=== PATIENT | male | born 1950 | race Caucasian/White ===

== ENCOUNTER → 2020-04-17 10:03 | Outpatient (CLI) | payer MEDICARE, OTHER, SELFPAY ==
[2020-04-19 08:49] LABS: COVID19 Sendout Not Detected (Not Detect)
== END ==
PROVIDERS: Visit Provider Nurse Practitioner
DX: Z01.812 Encounter for preprocedural laboratory examination (principal)
CPT/HCPCS: 87635

== ENCOUNTER 2020-04-20 06:59 | Day surgery (SDC) | payer MEDICARE, OTHER, SELFPAY ==
[2020-04-18 07:24] VITALS: BMI 31.4
[2020-04-20] VITALS (14 sets, daily range): BP systolic 95–145; BP diastolic 58–97; PULSE 42–64; RESP 11–16; TEMP 35.6–36.6; O2SAT 93–98; BMI 31.4
--- NOTE | 2020-04-20 06:00 | DI.RAD.S_ITS ---
PROCEDURE: XR HIP W PEL IF DONE LT 2V INDICATIONS: post operative left hip TECHNIQUE: Single frontal view of the left hip acquired. COMPARISON: [facility], CR, XR PELVIS WITH LATERAL HIP LEFT, 03/30/2020, 9:53. FINDINGS: Bones: Patient is status post left hip arthroplasty, with hardware components in expected positions. The hip joint appears congruent. The visualized bony structures appear intact. Soft tissues: Overlying postoperative changes are noted. No suspicious soft tissue densities. IMPRESSION: Normal alignment after left total hip arthroplasty. Moderate osteoarthritis again noted at the right hip. Dictated by: Maicol Wharton M.D. on 04/20/2020 at 11:30 Approved by: Maicol Wharton M.D. on 04/20/2020 at 11:30
[2020-04-20] MEDS: ACETAMINOPHEN 325 MG TABLET 975 MG PO (08:00)
[2020-04-20] MEDS: PREGABALIN 75 MG CAPSULE PO (08:00)
[2020-04-20] MEDS: CELECOXIB 200 MG CAPSULE PO (08:00)
[2020-04-20] MEDS: LACTATED RINGERS 1,000 ML 42 ML IV (08:05)
[2020-04-20] MEDS: CLINDAMYCIN 600 MG/50 ML PIGGYBACK 50 MG IV (08:50)
--- NOTE | 2020-04-20 08:56 | PM.PREOP ---
Pre-operative Note COVID-19 COVID-19 status: Negative Result date/Date tested (Pos, Neg/Pending): 04/18/20 Interval Note History & Physical reviewed/Exam performed by Physician: Yes Changes to H&P: No
[2020-04-20] MEDS: CLINDAMYCIN 300 MG in DEXTROSE 5 % IN WATER 50 ML 104 ML IV (09:05)
--- NOTE | 2020-04-20 09:26 | SUR.OPER ---
Lateral on padded OR bed. Gel axillary roll. Arms secured on padded armboard with pillow supporting top arm. Padded hip positioner braces x4 - anterior and posterior chest and pelvis. Additional gel pad used anterior pelvis. Gel pad under bottom leg from knee to foot and secured with tape over sheet.
[2020-04-20] MEDS: KETOROLAC 30 MG/ML VIAL IV (09:31)
[2020-04-20] MEDS: ROPIVACAINE 0.5% PF 5 MG/ML 20ML VIAL 60 ML INJ (09:31)
[2020-04-20] MEDS: MORPHINE 4 MG/ML INJ INJ (09:31)
[2020-04-20] MEDS: TRANEXAMIC ACID 1,000 MG VIAL 2000 MG INJ ×2 (09:33→09:57)
--- NOTE | 2020-04-20 09:49 | SUR.OPER ---
Humidity in OR was 69%; normal range 20-60%; surgery was delayed.
--- NOTE | 2020-04-20 10:37 | PM.OP.1 ---
Operative Date/Time/Diagnoses Date of procedure: 04/20/20 Time of procedure: 10:37 Pre-op diagnosis: Left hip degenerative joint disease Post-op diagnosis: same Procedure & Clinicians Procedure: Left total hip arthroplasty (CPT code 88399 with child welfare assistant) Same procedure as scheduled: Yes Indications: Patient is an 69-year-old male with severe left hip DJD. The patient has pain with activities and at rest, limited ambulation and activity tolerance, difficulties with ADLs, and failure of conservative treatment. We have discussed the nature of condition, treatment options, risks and benefits, and patient elects to proceed with total hip arthroplasty and gives informed consent. Surgeon: Vargas Barron Design And Sales Consultant: Devan Varghese Anesthesia Type: General and Spinal Operative Notes Closure Type: primary Specimen(s): none sent Prosthetic devices, grafts, tissues, transplants, or devices: Acetabulum: Lal and Nephew R3 acetabular component size 54 mm Femoral component: Lal [employer] Nephew Anthology stem size 6 with standard offset Femoral head: 36 mm + 4 cobalt chrome Estimated Blood Loss (mL): 100 Blood products transfused: none Procedure in detail: After satisfaction induction of anesthetic, and administration of IV antibiotics, the patient was positioned in the lateral decubitus position with all bony prominences well padded and pelvic position secured using a hip older worker specialist positioning device. Left hip and lower extremity prepped and draped in the usual sterile fashion, 1st dose of intravenous tranexamic acid was administered, then a longitudinal incision was created centered over the greater trochanter and carried sharply through the skin and subcutaneous tissues down to the fascia lakisha which was divided longitudinally and retracted with a Charnley retractor. External rotators visualize, cut, tagged, and retracted posteriorly, then the capsule was cut in a T-type fashion with the corners tagged and retracted. Hip was dislocated and femoral neck cut made according to preoperative templating. Acetabular retractors then placed, and the acetabular labrum and osteophytes were excised. The acetabulum was then sequentially reamed to 53 mm with an excellent circumferential ream and fit with the trial. The trial component was removed and a permanent size 54 mm Lal and Nephew R3 acetabular component was selected, positioned, and impacted with satisfactory position and fixation achieved. Permanent liner was then inserted with the elevated lip directed posteriorly. Soft tissue then removed off the lateral femoral neck in the lateral neck was entered using a box osteotome. T-handled reamers placed down the canal followed by sequential broaching to 6 with the final broach left in place for trial reduction which demonstrated good leg length, range of motion, and stability characteristics with a 36 mm +0 trial ball. Another trial reduction was performed with a +4 ball which yielded excellent leg length range of motion and stability characteristics. The trial and broach were removed, and a permanent size 6 Lal and Nephew Anthology stem was selected and inserted with excellent position and fixation achieved. Another trial reduction yielded the above characteristics so the trial ball was exchanged for a permanent 36 mm + 4 cobalt chrome ball. The hip was irrigated and reduced and excellent leg length range of motion and stability characteristics were achieved and maintained. Periarticular tissues were infiltrated with ropivacaine, morphine, and Toradol. The hip was copiously irrigated, and the capsule repaired with #2 Ethibond, and the piriformis was repaired back to the greater trochanter with the same. Fascia lakisha closed with interrupted #1 Ethibond sutures, and the subcutaneous tissues were closed in 2 layers of 0 Vicryl and 2 0 Vicryl. Skin was closed with zip line closure and sterile dressings applied. Second dose of tranexamic acid was administered intravenously, and the anesthetic was terminated. Complications: none Post-operative Condition: stable Disposition: PACU Plan for aftercare: Patient will be admitted to the acute care [facility], and anticipate discharge on postop day 1 with follow-up in office in 10-14 days. Outpatient physical therapy will be arranged and patient will continue to observe posterior hip precautions. Patient will continue use of postoperative aspirin for DVT prophylaxis postop.
[2020-04-20] MEDS: LACTATED RINGERS 1,000 ML 125 ML IV ×2 (12:48→20:24)
--- NOTE | 2020-04-20 14:25 | PT.IIE ---
Current Diagnoses Unilateral primary osteoarthritis, left hip (04/20/20) Surgery Performed Operation Date: 04/20/20 08:45 Actual Procedures p Total Hip Arthroplasty(Left) - Vargas Barron MD Surgical History (Last Updated 04/18/20 @ 08:13 by Linda Wade RN) History of colonoscopy (Acute) History of phacoemulsification of cataract of left eye with intraocular lens implantation (Acute) Hx of eye surgery (Acute 1977) Hx of hernia repair (Acute 2002) Medical History (Last Updated 04/18/20 @ 08:18 by Linda Wade RN) Adult acne (Acute) Anger (Acute) Bradycardia (Acute) Decompression sickness (Acute 2012) Enlarged prostate (Acute) Fracture, nasal (Acute) Hearing loss (Acute) Pneumonia (Acute 2015) Prostatitis (Acute) Physical Therapy Inpatient Evaluation/Re-Eval M1 PT/OT-IP Prior Functional Status Start: 04/20/20 16:06 Freq: NEEDED Status: Active Protocol: Document 04/20/20 14:25 AB (Rec: 04/20/20 16:21 AB [id number]) Medical Review Prior Functional Status Medical History Reviewed Yes Communication able to make needs known Mobility and Gait pt stated that he is independent with all mobilities and ambulation using SPC Social History Household Members spouse Living Arrangements House Number of Floors (Floors) One Floor Number of Stairs To Enter/Railing? 3 steps to et[place] fromt he garage with R rail ascending Home Environment High Toilet,Walk in Shower, Built-In Shower Seat Home Equipment Front Wheel Walker,Straight Cane,Raised Toilet Seat w/ Armrests,Hand Held Shower,Grab Bars In Shower Employment Status Retired M2 PT-IP Current Condition Start: 04/20/20 16:06 Freq: NEEDED Status: Active Protocol: Document 04/20/20 14:25 AB (Rec: 04/20/20 16:21 AB [id number]) Physical Therapy Current Condition Current Condition Evaluation Date 04/20/20 Treatment Diagnosis s/p L JESÚS posterior approach; difficulty in walkiing Onset Date 04/20/20 Precautions Posterior Hip Precautions No Hip Flexion > 90 degrees,No Hip Internal Rotation,No Hip Adduction Weight Bearing Status Weight Bearing Status Weight Bear as Tolerated Allowed Weight Bearing Amount (enter % LLE WBAT or #) (%) M3 PT-IP Subjective Start: 04/20/20 16:06 Freq: NEEDED Status: Active Protocol: Document 04/20/20 14:25 AB (Rec: 04/20/20 16:21 AB [id number]) Subjective Physical Therapy Visit Type Type Initial Evaluation Visit Start Time 14:25 Visit Stop Time 15:04 Total Visit Minutes 39 Number of PHOTOGRAPHY AND PRINTS CURATOR Visits 0 Physical Therapy Visit Comments Patient Comments pt is agreeable to do PT Therapy Pain Assessment Pain Present Pain Present Denied Pain M4 PT-IP Mobility and Gait Start: 04/20/20 16:06 Freq: NEEDED Status: Active Protocol: Document 04/20/20 14:25 AB (Rec: 04/20/20 16:21 AB [email or web address]) PT-Bed Mobility Assessment Supine to Sit Supine to Sit Standby Assistance PT-Transfer Assessment Sit to and From Stand Sit to and from Stand Contact Guard Assistance,1 Person Assistance,Use of Upper Extremities Equipment Transfer Assistive Device Gait Belt,Front Wheeled Walker Orthotic/Prosthetic Devices or Brace: No Transfers Transfer Destination Chair Transfer Technique ambulated using FWW Transfer Ability Level of Assist Contact Guard Assistance,1 Person Assistance,Use of Upper Extremities Comments Mobility Comments educated on posterior hip precautions. completed supine to sit SBA. pt was able to sit on EOB SBA. pt without c/ o. completed sit to stand CGA . cued for hip precautions. increase posterior trunk lean with initial standing and provided CGA and educated on COG and posture. pt ambulated in room ~ 30 ft using FWW CGA . agreed to sit up on chair. positioned on chair. call light and table placed within reach. Gait Assessment Gait Gait Assistance Required: Contact Guard Assist Distance (Feet) 30 Able to Maintain Weight Bearing Status Yes During Gait Assistive Devices Assistive Device Gait Belt,Front Wheeled Walker Orthotic/Prosthetic Devices or Brace: No Gait Deviations General Gait Pattern Antalgic,Decreased Stride Length,Decreased Feet Clearance Factors Limiting Gait Function Factors Limiting Gait Function Decreased Activity Tolerance, Decreased Strength,Poor Balance PT-Balance Assessment Sitting Balance and Reactions Static Sitting Balance Ability Good Dynamic Sitting Balance Ability Good Standing Balance and Reactions Static Standing Balance Ability Fair Dynamic Standing Balance Ability Fair Device Used FWW M5 PT-IP Objective Assessments Start: 04/20/20 16:06 Freq: NEEDED Status: Active Protocol: Document 04/20/20 14:25 AB (Rec: 04/20/20 16:21 AB [id number]) Orientation Orientation/Cognition Level of Alertness Alert Orientation Name,Place,Situation Language Function Ability No Deficits Noted Safety Awareness Understands Safety Issues Memory Description Short Term Impaired Gross Range of Motion Lower Extremity ROM Assessment Within Functional Limits Strength Lower Extremity Strength Assessment Left Impaired Hip 3+/5 Knee 4-/5 Coordination Assessment Gross Coordination Gross Coordination WNL Sensation Assessment Sensation Gross Sensation WNL Muscle Tone Muscle Tone WNL Yes M6 PT-IP Treatment Start: 04/20/20 16:06 Freq: NEEDED Status: Active Protocol: Document 04/20/20 14:25 AB (Rec: 04/20/20 16:21 AB [id number]) Physical Therapy Treatment Education Education Provided Precautions,Weight Bearing Status,Post-Op Packet,Safety M7 PT-IP Assessment and Plan Start: 04/20/20 16:06 Freq: NEEDED Status: Active Protocol: Document 04/20/20 14:25 AB (Rec: 04/20/20 16:21 AB [email or web address]) PT Summary Assessment and Plan Potential Rehabilitation Potential Good Status of Condition at Evaluation Stable Summary Impairments Pain,ROM,Strength,Balance, Cognition,Bed Mobility, Transfers,Gait,Activity Tolerance Assessment Summary pt s/p L JESÚS and just had surgery this morning. pt currently does not c/o of any pain and is requiring CGA with mobility. pt plans to go home and spouse will assist pt . will continue to assess progress and will conduct caregiver training when appropriate and will also complete stair climbing training. Goals Bed Mobility Goal Independent Transfer Goal Independent,Front Wheeled Walker Gait Goal Independent,Front Wheel Walker Gait Distance 150 Other Goals up/down 3 steps R rail ascending SBA Days to Meet Goals 5 Frequency of Treatment Frequency Of Treatment Twice a Day Treatment Plan Physical Therapy Treatment Plan Bed Mobility Training,Transfer Training,Gait Training, Therapeutic Exercise,Balance Retraining,Post Op Education, Discharge Planning,Hot or Cold Pack,Neuromuscular Re-ed, Coordination Retraining,Manual Therapy Recommendations To Nursing Amount of Assist Needed 1 Person Assist Discharge Recommendations PT Discharge Recommendations Home with Assistance, Outpatient PT Transportation Needs at Discharge Private Vehicle
[2020-04-20] MEDS: ACETAMINOPHEN 325 MG TABLET 650 MG PO ×2 (14:41→20:26)
[2020-04-20] MEDS: DULOXETINE 20 MG CAPSULE PO (17:01)
--- NOTE | 2020-04-20 19:40 | PC.NURSE ---
Cristobal cath @ 1930 d/t no output, 600ml out.
[2020-04-20] MEDS: ASPIRIN EC 81 MG TABLET PO (20:26)
[2020-04-20] MEDS: DOCUSATE 100 MG CAPSULE PO (20:26)
--- NOTE | 2020-04-21 02:50 | PC.NURSE ---
Patient is having difficulty urinating. Bladder scan at 0240 showed >700ml. Patient was straight cathed and had output of 775ml. Patient denies pain. Dressing is CDI, CMS intact w/ some itching. Patient is ambulating to bathroom and at bedside 1 person stand by assist w/ FWW.
[2020-04-21 04:31] VITALS: BP 120/82; PULSE 53; RESP 16; TEMP 36.4; O2SAT 94
[2020-04-21 07:04] LABS: Hematocrit 37.9 % (41-53); Hemoglobin 12.8 g/dL (13.5-17.5)
--- NOTE | 2020-04-21 07:40 | P.PN_ITS ---
Subjective Subjective Date Patient Seen: 04/21/20 Time Patient Seen: 07:40 Interval history: Patient is POD#1 s/p L JESÚS with Dr. Barron. Had difficulty with voiding overnight, but has been able to void ~200ml this AM. Pain has been controlled with Tylenol so far. He worked with PT yesterday and has mobilized about the room. No complaints. Exam Vital Signs (past 8 hours): - 04/21/20 04:31 Temperature 97.6 F Pulse Rate 53 L Respiratory Rate 16 Blood Pressure 120/82 Pulse Oximetry 94 Oxygen Delivery Method Room Air Oxygen Flow Rate 0 Narrative Exam Narrative: 69 year old male resting in bed alert and oriented. No acute distress. Bulky dressing in place is peeling up but dry. Patient able to perform a straight leg raise. Calves are soft, nontender. Objective Labs Result Diagrams: 04/21/20 06:50 Labs: Laboratory Results - last 24 hr 04/21/20 06:50 Hgb 12.8 L Hct 37.9 L Assessment & Plan Assessment & Plan narrative: Patient doing well postoperatively. Did have some urinary retention overnight likely due to spinal anesthesia. Has history of BPH and prostatitis. Was able to spontaneously void ~200ml this AM. W ill give one dose of Flomax today. Pain has been controlled, he was given Oxycodone script preoperatively. He will be maintained on ASA 81mg BID for DVT prophylaxis. His is available as caregiver at home. Discharge to home later today.
[2020-04-21 07:47] VITALS: BP 132/74; PULSE 52; RESP 16; TEMP 36.2; O2SAT 94
[2020-04-21] MEDS: ASPIRIN EC 81 MG TABLET PO (09:26)
[2020-04-21] MEDS: DOCUSATE 100 MG CAPSULE PO (09:26)
[2020-04-21] MEDS: ACETAMINOPHEN 325 MG TABLET 650 MG PO (09:26)
[2020-04-21] MEDS: TAMSULOSIN 0.4 MG CAPSULE PO (09:27)
[2020-04-21] MEDS: INFLUENZA HD VACCINE 0.7 ML SYRINGE IM (10:29)
--- NOTE | 2020-04-21 11:20 | PT.IPTN ---
Current Diagnoses Unilateral primary osteoarthritis, left hip (04/20/20) Surgery Performed Operation Date: 04/20/20 08:45 Actual Procedures p Total Hip Arthroplasty(Left) - Vargas Barron MD Physical Therapy Treatment Note M2 PT-IP Current Condition Start: 04/20/20 16:06 Freq: NEEDED Status: Discharge Protocol: Document 04/20/20 14:25 AB (Rec: 04/20/20 16:21 AB [id number]) Physical Therapy Current Condition Current Condition Evaluation Date 04/20/20 Treatment Diagnosis s/p L JESÚS posterior approach; difficulty in walkiing Onset Date 04/20/20 Precautions Posterior Hip Precautions No Hip Flexion > 90 degrees,No Hip Internal Rotation,No Hip Adduction Weight Bearing Status Weight Bearing Status Weight Bear as Tolerated Allowed Weight Bearing Amount (enter % LLE WBAT or #) (%) M3 PT-IP Subjective Start: 04/20/20 16:06 Freq: NEEDED Status: Discharge Protocol: Document 04/21/20 10:54 KS (Rec: 04/21/20 13:31 KS [id number]) Subjective Physical Therapy Visit Type Type Treatment Note Visit Start Time 10:54 Visit Stop Time 11:20 Total Visit Minutes 26 Number of SALES CONTRACTOR Visits 1 Physical Therapy Visit Comments Patient Comments pt is agreeable to do PT M4 PT-IP Mobility and Gait Start: 04/20/20 16:06 Freq: NEEDED Status: Discharge Protocol: Document 04/21/20 10:54 KS (Rec: 04/21/20 13:31 KS [id number]) PT-Bed Mobility Assessment Supine to Sit Supine to Sit Standby Assistance Sit to Supine Sit to Supine Standby Assistance Scooting Scooting to Edge of Bed Standby Assistance PT-Transfer Assessment Sit to and From Stand Sit to and from Stand Standby Assistance,1 Person Assistance,Use of Upper Extremities Equipment Transfer Assistive Device Gait Belt,Front Wheeled Walker Orthotic/Prosthetic Devices or Brace: No Transfers Transfer Destination Chair Transfer Technique ambulated using FWW Transfer Ability Level of Assist Standby Assistance,1 Person Assistance,Use of Upper Extremities Comments Mobility Comments Pt in chair upon arrival from therapy. Pt able to recall 3/3 hip precautions. SBA for sit< >stand w/ FWW w/ cues for hand placement. Pt then completed 20 second sweight shifting followed by [address] w/ FWW. Pt then ambulated ~60 ft to stairs and ascended/descended 3 steps w/ BHR and step to step gait SBA w/ cues for sequencing. Pt then returned to room and performed bed mobility SBA w/ gaitbelt for self assistance of LLE. Pt states he feels safe and able to return home. Gait Assessment Gait Gait Assistance Required: Standby Assistance,1 Person Assist Distance (Feet) 120 Able to Maintain Weight Bearing Status Yes During Gait Assistive Devices Assistive Device Gait Belt,Front Wheeled Walker Orthotic/Prosthetic Devices or Brace: No Gait Deviations General Gait Pattern Antalgic,Decreased Stride Length,Decreased Feet Clearance Factors Limiting Gait Function Factors Limiting Gait Function Decreased Activity Tolerance, Decreased Strength,Poor Balance Stair Climbing Assessment Evaluation Level of Assist On Stairs Standby Assistance Devices Stair Climbing Assistive Devices Left Railing,Right Railing Technique/Endurance Stair Climbing Direction Ascend and Descend Stair Climbing Technique Step to Step Number of Steps Climbed 3 Stair Climbing Set # Repetitions (reps) 1 Comments Stair Climbing Comments Pt ascended/descended 3 steps w/ BHR SBA w/ step to pattern and cues for leg sequencing. Pt states he feels safe to complete steps at home. PT-Balance Assessment Sitting Balance and Reactions Static Sitting Balance Ability Good Dynamic Sitting Balance Ability Good Standing Balance and Reactions Static Standing Balance Ability Good Dynamic Standing Balance Ability Fair Device Used FWW M5 PT-IP Objective Assessments Start: 04/20/20 16:06 Freq: NEEDED Status: Discharge Protocol: Document 04/20/20 14:25 AB (Rec: 04/20/20 16:21 AB [id number]) Orientation Orientation/Cognition Level of Alertness Alert Orientation Name,Place,Situation Language Function Ability No Deficits Noted Safety Awareness Understands Safety Issues Memory Description Short Term Impaired Gross Range of Motion Lower Extremity ROM Assessment Within Functional Limits Strength Lower Extremity Strength Assessment Left Impaired Hip 3+/5 Knee 4-/5 Coordination Assessment Gross Coordination Gross Coordination WNL Sensation Assessment Sensation Gross Sensation WNL Muscle Tone Muscle Tone WNL Yes M6 PT-IP Treatment Start: 04/20/20 16:06 Freq: NEEDED Status: Discharge Protocol: Document 04/21/20 10:54 KS (Rec: 04/21/20 13:31 KS [id number]) Physical Therapy Treatment Education Education Provided Precautions,Weight Bearing Status,Post-Op Packet,Safety M7 PT-IP Assessment and Plan Start: 04/20/20 16:06 Freq: NEEDED Status: Discharge Protocol: Document 04/21/20 10:54 KS (Rec: 04/21/20 13:31 KS [id number]) PT Summary Assessment and Plan Potential Rehabilitation Potential Good Status of Condition at Evaluation Stable Summary Impairments Pain,ROM,Strength,Balance, Cognition,Bed Mobility, Transfers,Gait,Activity Tolerance Progress Towards Goals Progressing Toward Goals Assessment Summary Pt SBA for bed mobility, transfers, ambulation, and stairs. Pt used gait belt for self assistance of LLE into and out of bed, ambulated ~120 ft w/ FWW, and ascended/ descended 3 steps w/ BHR and step to pattern. Pt states he feels safe to return home w/ . He will benefit from outpatient rehab, which he has set up. Goals Bed Mobility Goal Independent Transfer Goal Independent,Front Wheeled Walker Gait Goal Independent,Front Wheel Walker Gait Distance 150 Other Goals up/down 3 steps R rail ascending SBA Days to Meet Goals 5 Frequency of Treatment Frequency Of Treatment Twice a Day Treatment Plan Physical Therapy Treatment Plan Bed Mobility Training,Transfer Training,Gait Training, Therapeutic Exercise,Balance Retraining,Post Op Education, Discharge Planning,Hot or Cold Pack,Neuromuscular Re-ed, Coordination Retraining,Manual Therapy Recommendations To Nursing Amount of Assist Needed 1 Person Assist Discharge Recommendations PT Discharge Recommendations Home with Assistance, Outpatient PT Transportation Needs at Discharge Private Vehicle
--- NOTE | 2020-04-21 11:58 | PC.NURSE ---
Aquacel dressing to left hip placed per MD order, patient tolerated well. Cleared by physical therapy and patient waiting for his to pick him up for discharge to home.
[2020-04-21] MEDS: OXYCODONE IR 5 MG TABLET PO (12:29)
--- NOTE | 2020-04-21 12:51 | PC.NURSE ---
Discharge instructions and home care handouts reviewed with patient and his . IV dc'd intact. Patient states he has no further questions or concerns. Aquacel dressing intact. Patient escorted out via wheelchair with all belonging, patient has follow up appointment scheduled.
--- NOTE | 2020-04-21 13:45 | CM.IDA ---
Initial DCP Assessment Note Pt is a 69 yo male, resident of [place], now POD#1 from [facility] left hip surgery w/ Dr Barron PCP: Jameson Akins Payer: [facility] Reviewed chart, pt discussed in multidisciplinary rounds this morning. Therapy has cleared pt for return home w/family to assist and pt has planned for home, DC order from Ortho has already been initiated this morning. Met w/patient to introduce role, patient eager to return home, spouse to assist. 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 PUMA Polo
== END 2020-04-21 12:55 | disposition home or self-care (01) ==
LOC: OR 07:05 → AC 07:06
PROVIDERS: PCP Student in an Organized Health Care Education/Training Program; Referring Provider Student in an Organized Health Care Education/Training Program; Visit Provider Orthopaedic Surgery
PROC: 0SRB0JZ Replacement of Left Hip Joint with Synthetic Substitute, Open Approach (ICD-10-PCS; CPT 27130; principal; 2020-04-20 08:45)
DX: M16.12 Unilateral primary osteoarthritis, left hip (principal); Z23 Encounter for immunization
CPT/HCPCS: 27130; 36415; 73502; 85014; 85018; 90471; 90662; 97116; 97161; 97530; C1776; J1100; J1885; J2250; J2270; J2274; J2405; J2704; J3010; S0077

== ENCOUNTER 2022-02-18 19:36 | Emergency (ER) | payer MEDICARE, OTHER, SELFPAY ==
[2020-04-20 11:10] VITALS: BMI 31.4
[2022-02-18] VITALS (10 sets, daily range): BP systolic 109–130; BP diastolic 70–84; PULSE 51–61; RESP 20–24; TEMP 36.6; O2SAT 94–99
--- NOTE | 2022-02-18 19:55 | DI.RAD.S_ITS ---
PROCEDURE: XR CHEST 1V INDICATIONS: suspected sepsis TECHNIQUE: One view of the chest was acquired. COMPARISON: None. FINDINGS: Surgical changes and devices: None. Lungs and pleura: Lungs are clear. No pleural effusions or pneumothorax. Mediastinum: Mediastinal contours appear normal. Heart size is normal. Bones and chest wall: No suspicious bony lesions. Overlying soft tissues appear unremarkable. IMPRESSION: 1. No acute cardiopulmonary disease. Dictated by: Romulo Seals M.D. on 02/18/2022 at 21:30 Approved by: Romulo Seals M.D. on 02/18/2022 at 21:34
[2022-02-18 20:16] LABS: Add Manual Diff / Slide Review NO; Basophils Absolute Auto 0 /uL (0-100); Basophils Percent Auto 0.9 % (0-2); Eosinophils Absolute Auto 0 /uL (0-450); Eosinophils Percent Auto 0.1 % (2-4); Hematocrit 46.1 % (41-53); Hemoglobin 16.1 g/dL (13.5-17.5); Lymphocytes Absolute Auto 700 /uL (1100-4500); Lymphocytes Percent Auto 15.3 % (25-40); Mean Corpuscular HGB Conc 34.8 % (30-36); Mean Corpuscular Hemoglobin 30.4 PG (26-34); Mean Corpuscular Volume 87.5 fL (80-100); Monocytes Absolute Auto 500 /uL (0-900); Monocytes Percent Auto 10.6 % (3-14); Neutrophils Absolute Auto 3200 /uL (1500-7000); Neutrophils Percent Auto 73.1 % (50-75); Platelet Count 217 X10^3/uL (150-400); Red Blood Cell Count 5.27 X10^6/uL (4.5-5.9); White Blood Cell Count 4.4 X10^3/uL (4.5-11.0)
[2022-02-18] MEDS: SODIUM CHLORIDE 0.9% 1,000 ML 1000 ML IV (20:16)
[2022-02-18 20:26] LABS: Alanine Aminotransferase 76 IU/L (<50); Albumin 4.3 g/dL (3.5-5.0); Albumin Globulin Ratio 1.1 (1.0-2.8); Alkaline Phosphatase 88 U/L (38-126); Aspartate Aminotransferase 71 IU/L (17-59); BUN Creatinine Ratio 26.5 (6-22); Bilirubin Total 0.8 mg/dL (0.2-1.3); Blood Urea Nitrogen 27 mg/dL (9-20); Calcium 8.7 mg/dL (8.4-10.2); Carbon Dioxide 28 mmol/L (22-32); Chloride 103 mmol/L (98-107); Estimated Glomerular Filt Rate > 60 mL/min (>60); Globulin 3.8 g/dL (1.7-4.1); Glucose 96 mg/dL (80-110); HEMOLYSIS 18 (0-50); Lipase 144 U/L (23-300); Potassium 4.5 mmol/L (3.4-5.1); Sodium 137 mmol/L (137-145); Total Protein 8.1 g/dL (6.3-8.2)
[2022-02-18 20:42] LABS: Procalcitonin 0.46 ng/mL (<0.5)
[2022-02-18 21:05] LABS: Adenovirus Not Detected (Not Detect); Coronavirus 229E Not Detected (Not Detect); Coronavirus HKU1 Not Detected (Not Detect); Coronavirus NL 63 Not Detected (Not Detect); Coronavirus OC43 Not Detected (Not Detect); Human Metapneumovirus Not Detected (Not Detect); Human Rhinovirus/Enterovirus Not Detected (Not Detect); Influenza A Not Detected (Not Detect); Influenza B Not Detected (Not Detect); Parainfluenza Virus 1 Not Detected (Not Detect); Parainfluenza Virus 2 Not Detected (Not Detect); Parainfluenza Virus 3 Not Detected (Not Detect); Parainfluenza Virus 4 Not Detected (Not Detect); SARS- CoV-2 Not Detected (Not Detecte)
[2022-02-18 21:06] LABS: B. parapertussis Not Detected (Not Detecte); Bordetella pertussis Not Detected (Not Detecte); Chlamydophila pneumoniae Not Detected (Not Detect); Mycoplasma pneumoniae Not Detected (Not Detect); Respiratory Syncytial Virus Not Detected (Not Detect)
--- NOTE | 2022-02-18 22:33 | ED_ITS ---
HPI - Fever General Chief Complaint: Fever Stated Complaint: Chills/Flu Symptoms Time Seen by Provider: 02/18/22 20:15 Source: patient Mode of arrival: Ambulatory History of Present Illness HPI Narrative: 71-year-old male former smoker presents with a chief complaint of fever and chills with body aches for the past few days. He has had some hacking cough but denies other specific complaints. He is had a vague mild headache without obv ious provocation or palliation and denies any neck pain, blurred vision, trouble speech or focal neurologic findings. He denies nausea, vomiting or diarrhea. He has no abdominal pain and denies dysuria, frequency or urgency. He is had no exposure to other ill persons. Denies any rash or skin breakdown and denies any dental pain. Related Data Home Medications Medication Instructions Recorded Confirmed duloxetine 20 mg capsule,delayed 20 mg PO QPM 04/18/20 04/20/20 release ibuprofen 800 mg tablet 800 mg PO DAILY PRN Pain 04/18/20 04/18/20 Previous Rx's Medication Instructions Recorded acetaminophen 325 mg tablet 650 mg PO TID #40 tabs 04/21/20 aspirin 81 mg tablet,delayed 81 mg PO BID #40 tabs 04/21/20 release docusate sodium 100 mg capsule 100 mg PO BID #40 caps 04/21/20 (DOK) oxycodone 5 mg tablet 5 mg PO Q3HR PRN Pain, Moderate 04/21/20 (4-6) #1 tab doxycycline hyclate 100 mg tablet 100 mg PO BID #20 tabs 02/19/22 Allergies Allergy/AdvReac Type Severity Reaction Status Date / Time oxacillin Allergy Severe Hives Verified 04/20/20 07:47 Penicillins Allergy Severe Hives Verified 04/20/20 07:47 Review of Systems Review of Systems Narrative: GENERAL: See HPI HEENT: See HPI RESPIRATORY: See HPI CARDIOVASCULAR: Denies chest pain, palpitations, orthopnea, edema, GASTROINTESTINAL: Denies nausea, vomiting, abdominal pain, diarrhea, constipation, melena. : Denies dysuria, frequency, incontinence, hematuria, urinary retention. MUSCULOSKELETAL: denies weakness, joint pain, or bony pain SKIN: Denies rash, skin lesions, or other NEUROLOGIC: See HPI PSYCHIATRIC: No concerning psychosocial issues. 12 point review of systems is negative except for those stated above Patient History Medical History Adult acne Anger Bradycardia Decompression sickness (2013) Enlarged prostate Fracture, nasal Hearing loss Pneumonia (2016) Prostatitis Surgical History History of colonoscopy History of phacoemulsification of cataract of left eye with intraocular lens implantation Hx of eye surgery (1977) Hx of hernia repair (2002) Social History household members: spouse Smoking Status: Never smoker alcohol intake: current Smoking Status: Never smoker alcohol intake frequency: 0-2 drinks per day Substance Use Type: does not use Exam Narrative Exam Narrative: GENERAL: [71] year old patient appears stated age. Well-developed patient, in mild distress. GCS 15 HEAD: Atraumatic. Normocephalic. EYES: Pupils equal round and reactive. Extraocular motions intact. No scleral icterus. No injection or drainage. ENT: Nose without bleeding, purulent drainage. Throat without erythema, tonsillar hypertrophy or exudate. Airway patent. NECK: Trachea midline. Non tender. No meningeal signs CARDIOVASCULAR: Regular rate and rhythm without murmurs, gallops, or rubs. RESPIRATORY: Clear to auscultation. Breath sounds equal bilaterally. No wheezes, rales, or rhonchi. Occasional harsh cough noted during exam GASTROINTESTINAL: Abdomen soft, non-tender, nondistended. EXTREMITIES: No edema or joint tenderness. BACK: Nontender without deformity or crepitance. No flank tenderness. NEURO: AOx3. SKIN: No rash or erythema of visible areas Initial Vital Signs Initial Vital Signs: Vital Signs Temperature 97.8 F 02/18/22 19:51 Pulse Rate 57 L 02/18/22 19:51 Respiratory Rate 22 02/18/22 19:51 Blood Pressure 129/84 02/18/22 19:51 Pulse Oximetry 99 02/18/22 19:51 Oxygen Delivery Method 02/18/22 19:51 Course Orders Ordered: Discontinued Medications Doxycycline Hyclate (Doxycycline Hyclate 100 Mg Tablet) 100 mg PO NOW ONE Stop: 02/19/22 00:50 Last Admin: 02/19/22 01:00 Dose: 100 mg Documented By: SB Sodium Chloride (Normal Saline 0.9%) 1,000 mls @ 1,000 mls/hr IV BOLUS ONE Stop: 02/18/22 20:54 Last Infusion: 02/18/22 22:00 Dose: 0 mls/hr Documented By: Admin: 02/18/22 20:16 Dose: 1,000 mls/hr Documented By: BRITNEY Vital Signs Vital signs: Vital Signs - 8 hr 02/18/22 22:30 02/18/22 22:30 02/18/22 23:00 Temperature 97.9 F Pulse Rate 57 L Respiratory Rate 23 Blood Pressure 109/74 117/70 Pulse Oximetry 94 02/18/22 23:00 02/18/22 23:30 02/18/22 23:30 Temperature Pulse Rate 51 L Respiratory Rate 20 21 Blood Pressure 126/73 Pulse Oximetry 94 96 02/19/22 00:00 02/19/22 00:00 02/19/22 00:30 Temperature Pulse Rate 51 L Respiratory Rate 21 Blood Pressure 110/67 105/72 Pulse Oximetry 95 02/19/22 00:30 02/19/22 01:00 02/19/22 01:00 Temperature Pulse Rate 52 L 65 Respiratory Rate 20 24 Blood Pressure 130/80 Pulse Oximetry 95 97 MDM - Fever Lab Data Result diagrams: 02/18/22 20:00 02/18/22 20:00 Labs: Lab Results 02/18/22 02/18/22 02/18/22 Range/Units 20:00 20:00 20:00 WBC 4.4 L (4.5-11.0) X10^3/uL RBC 5.27 (4.5-5.9) X10^6/uL Hgb 16.1 (13.5-17.5) g/dL Hct 46.1 (41-53) % MCV 87.5 (80-100) fL MCH 30.4 (26-34) PG MCHC 34.8 (30-36) % RDW 14.0 (11.6-14.8) % Plt Count 217 (150-400) X10^3/uL Neut % (Auto) 73.1 (50-75) % Lymph % (Auto) 15.3 L (25-40) % [place] % (Auto) 10.6 (3-14) % Eos % (Auto) 0.1 L (2-4) % Baso % (Auto) 0.9 (0-2) % Neut # (Auto) 3200 (3698-7949) /uL Lymph # (Auto) 700 L (9920-0237) /uL [place] # (Auto) 500 (0-900) /uL Eos # (Auto) 0 (0-450) /uL Baso # (Auto) 0 (0-100) /uL Sodium 137 (137-145) mmol/L Potassium 4.5 (3.4-5.1) mmol/L Chloride 103 (98-107) mmol/L Carbon Dioxide 28 (22-32) mmol/L BUN 27 H (9-20) mg/dL Creatinine 1.02 (0.66-1.25) mg/dL Estimated GFR > 60 (>60) mL/min BUN/Creatinine Ratio 26.5 H (6-22) Glucose 96 (80-110) mg/dL Lactate 1.0 (0.7-2.1) mmol/L Calcium 8.7 (8.4-10.2) mg/dL Total Bilirubin 0.8 (0.2-1.3) mg/dL AST 71 H (17-59) IU/L ALT 76 H (<50) IU/L Alkaline Phosphatase 88 (38-126) U/L Total Protein 8.1 (6.3-8.2) g/dL Albumin 4.3 (3.5-5.0) g/dL Globulin 3.8 (1.7-4.1) g/dL Albumin/Globulin Ratio 1.1 (1.0-2.8) Lipase 144 (23-300) U/L Procalcitonin 0.46 (<0.5) ng/mL Chlamy pneumoniae PCR (Not Detect) Adenovirus (PCR) (Not Detect) B. pertussis DNA (PCR) (Not Detecte) B.parapertussis DNA PCR (Not Detecte) Coronavirus OC43 (PCR) (Not Detect) Coronavirus HKU1 (PCR) (Not Detect) Coronavirus 229E (PCR) (Not Detect) SARS-CoV-2 (PCR) (Not Detecte) Coronavirus NL63 (PCR) (Not Detect) Human Metapneumovir PCR (Not Detect) Influenza Type A (PCR) (Not Detect) Influenza Type B (PCR) (Not Detect) M. pneumoniae (PCR) (Not Detect) Parainfluenza 1 (PCR) (Not Detect) Parainfluenza 2 (PCR) (Not Detect) Parainfluenza 3 (PCR) (Not Detect) Parainfluenza 4 (PCR) (Not Detect) RSV (PCR) (Not Detect) Entero/Rhino (PCR) (Not Detect) 02/18/22 Range/Units 20:05 WBC (4.5-11.0) X10^3/uL RBC (4.5-5.9) X10^6/uL Hgb (13.5-17.5) g/dL Hct (41-53) % MCV (80-100) fL MCH (26-34) PG MCHC (30-36) % RDW (11.6-14.8) % Plt Count (150-400) X10^3/uL Neut % (Auto) (50-75) % Lymph % (Auto) (25-40) % [place] % (Auto) (3-14) % Eos % (Auto) (2-4) % Baso % (Auto) (0-2) % Neut # (Auto) (3700-7144) /uL Lymph # (Auto) (1760-8439) /uL [place] # (Auto) (0-900) /uL Eos # (Auto) (0-450) /uL Baso # (Auto) (0-100) /uL Sodium (137-145) mmol/L Potassium (3.4-5.1) mmol/L Chloride (98-107) mmol/L Carbon Dioxide (22-32) mmol/L BUN (9-20) mg/dL Creatinine (0.66-1.25) mg/dL Estimated GFR (>60) mL/min BUN/Creatinine Ratio (6-22) Glucose (80-110) mg/dL Lactate (0.7-2.1) mmol/L Calcium (8.4-10.2) mg/dL Total Bilirubin (0.2-1.3) mg/dL AST (17-59) IU/L ALT (<50) IU/L Alkaline Phosphatase (38-126) U/L Total Protein (6.3-8.2) g/dL Albumin (3.5-5.0) g/dL Globulin (1.7-4.1) g/dL Albumin/Globulin Ratio (1.0-2.8) Lipase (23-300) U/L Procalcitonin (<0.5) ng/mL Chlamy pneumoniae PCR Not detected (Not Detect) Adenovirus (PCR) Not detected (Not Detect) B. pertussis DNA (PCR) Not detected (Not Detecte) B.parapertussis DNA PCR Not detected (Not Detecte) Coronavirus OC43 (PCR) Not detected (Not Detect) Coronavirus HKU1 (PCR) Not detected (Not Detect) Coronavirus 229E (PCR) Not detected (Not Detect) SARS-CoV-2 (PCR) Not detected (Not Detecte) Coronavirus NL63 (PCR) Not detected (Not Detect) Human Metapneumovir PCR Not detected (Not Detect) Influenza Type A (PCR) Not detected (Not Detect) Influenza Type B (PCR) Not detected (Not Detect) M. pneumoniae (PCR) Not detected (Not Detect) Parainfluenza 1 (PCR) Not detected (Not Detect) Parainfluenza 2 (PCR) Not detected (Not Detect) Parainfluenza 3 (PCR) Not detected (Not Detect) Parainfluenza 4 (PCR) Not detected (Not Detect) RSV (PCR) Not detected (Not Detect) Entero/Rhino (PCR) Not detected (Not Detect) Urine Dip Bedside Urine Glucose Negative Bedside Urine Bilirubin - Negative Bedside Urine Ketone - Negative Urine Specific [place] 1.030 Bedside Urine Occult Blood - Negative Bedside Urine pH 6.0 Bedside Urine Protein - Negative Bedside Urine Urobilinogen - Negative Bedside Urine Nitrite - Negative Bedside Urine Leukocytes - Negative Esterase Imaging Data Chest x-ray: Radiologist's Impression: ? Chart Viewer Diagnostics Subcategory All Activity ??:?? All Time ??:?? All Subcategories Filter Laboratory Imaging Microbiology Pathology Blood Bank Tests Cardiovascular Other Specialty DATE TYPE STATUS REF RANGE/AUTHOR Hx 02/18/22 19:55 Chest X-Ray Signed Romulo Seals 04/20/20 06:00 Hip X-Ray Signed Maicol Wharton 04/01/20 13:09 Outside EKG ? Pefern II Basim ED 71, M?1950 MRN#? [id number] REG ER,?Main ED??R05?? 85.275kg ? Fever Acc#? [id number] Resus Status Not Ordered Hx Avail Special Indicators No Data to Display Home Meds Not Confirmed Prescription Monitoring Program Total 0 MME/Day Incomplete MEDICATIONS (INSTRUCTIONS) LAST TAKEN Active ??acetaminophen ??650 mgPOTID#40 tabs ??aspirin ??81 mgPOBID#40 tabs ??docusate sodium [DOK] ??100 mgPOBID#40 caps *Product no longer available ??duloxetine ??20 mgPOQPM ??ibuprofen ??800 mgPODAILYPRNPain ??oxycodone ??5 [id number], Moderate (4-6)#1 tab 0 MME/Day Allergies oxacillin Hives Penicillins Hives Problems No Data to Display Vital Signs 02/18/22 22:30 BP 109/74? Pulse 57?L Resp 23? Temp 97.9 F? O2 Sat 94? Diagnostics Reports Basim Nance II??71??M??1950 ? Allergy/Adv: oxacillin, Penicillins Close Chest X-Ray (Signed) Romulo Seals - 02/18/22 Hip X-Ray (Signed) Maicol Wharton - 04/20/20 Outside EKG 04/01/20 Launch?[place] [address] XRay Report Signed Patient: Basim Nance II MR#: [id number] : 1950 Acct:[id number] Age/Sex: 71 / M Date of Service: 02/18/22 Loc: ED Accession Number: [id number] ?? Procedure: XR chest 1V Ordering Provider: John Torres D.O. PROCEDURE:? XR CHEST 1V ? INDICATIONS:? suspected sepsis ? TECHNIQUE:? One view of the chest was acquired.? ? COMPARISON:? None. ? FINDINGS:? ? Surgical changes and devices:? None.? ? Lungs and pleura:? Lungs are clear.? No pleural effusions or pneumothorax.? ? Mediastinum:? Mediastinal contours appear normal.? Heart size is normal.? ? Bones and chest wall:? No suspicious bony lesions.? Overlying soft tissues appear unremarkable.? ? IMPRESSION:? ? 1.? No acute cardiopulmonary disease. ? ? ? Dictated by: Romulo Seals M.D. on 02/18/2022 at 21:30 ? ? Approved by: Romulo Seals M.D. on 02/18/2022 at 21:34 ? [facility] Narrative Medical decision making narrative: Patient has a very reassuring history and physical exam with unremarkable labs and no significant findings on chest x-ray or urine. Given his fever and chills with former smoking and harsh cough we discussed covering him for atypical pneumonia, least until the cultures come back. He demonstrates no significant sign of respiratory distress and has stable vital signs. Return precautions discussed and questions answered to his apparent satisfaction Discharge Plan Departure Patient Disposition: Home Clinical Impression: Atypical pneumonia Instructions: Atypical Pneumonia Activity Restrictions/Additional Instructions: *You have been diagnosed with [atypical pneumonia. As we discussed your labs including full viral panel, chest x-ray and urine are very reassuring. Given your fever, chills and cough we will treat you for atypical pneumonia. Blood cultures are pending, if they demonstrate findings that would suggest we need to change antibiotics we will call you.] *What to do: *Please continue to take your regular medications as directed. [ x] New medication prescriptions sent to your pharmacy: [[facility] ] [ ] New medication written as a paper prescription [ ] No new medications given *Please follow up with your primary care provider in 2-3 days, call for an appointment. Let them know you were seen in the Emergency Department and that we ask that you be seen in follow up. We will electronically transmit a record of today's note if your PCP is in our system *If you do not have a primary care provider please contact the [facility] Resource line at [phone]. They will ask some questions about your medical history and help get you set up with a doctor in the community. *Return to Emergency Department if you should have any new, worsening or concerning symptoms Prescriptions: New doxycycline hyclate 100 mg tablet 100 mg PO BID Qty: 20 0RF No Action ibuprofen 800 mg Tablet 800 mg PO DAILY PRN (Reason: Pain) duloxetine 20 mg Capsule,Delayed Release(Dr/Ec) 20 mg PO QPM Rx Instructions: Takes at 1999 acetaminophen 325 mg Tablet 650 mg PO TID Qty: 40 0RF aspirin 81 mg Tablet,Delayed Release (Dr/Ec) 81 mg PO BID Qty: 40 0RF docusate sodium [DOK] 100 mg Capsule 100 mg PO BID Qty: 40 0RF oxycodone 5 mg Tablet 5 mg PO Q3HR PRN (Reason: Pain, Moderate (4-6)) Qty: 1 0RF Referrals: Jameson Akins DO [Primary Care Provider] - Visit Report Forms: Patient Portal/API
[2022-02-19] VITALS: BP 110/67; PULSE 51; RESP 21; O2SAT 95
[2022-02-19 00:30] VITALS: BP 105/72; PULSE 52; RESP 20; O2SAT 95
[2022-02-19 01:00] VITALS: BP 130/80; PULSE 65; RESP 24; O2SAT 97
[2022-02-19] MEDS: DOXYCYCLINE HYCLATE 100 MG TABLET PO (01:00)
== END 2022-02-19 01:09 | disposition home or self-care (01) ==
PROVIDERS: Emergency Provider Emergency Medicine; PCP Student in an Organized Health Care Education/Training Program
DX: J18.9 Pneumonia, unspecified organism (principal); R00.1 Bradycardia, unspecified
CPT/HCPCS: 36415; 71045; 80053; 81003; 83605; 83690; 84145; 85025; 87040; 87633; 93005; 93010; 99284

== ENCOUNTER 2022-03-21 12:03 | Emergency (ER) | payer MEDICARE, OTHER, SELFPAY ==
[2020-04-20 11:10] VITALS: BMI 31.4
[2022-03-21 12:20] VITALS: BP 154/83; PULSE 49; RESP 15; O2SAT 97; BMI 30.7
--- NOTE | 2022-03-21 16:08 | DI.US.S_ITS ---
PROCEDURE: US ABDOMEN LIMITED INDICATIONS: LEFT INGUINAL HERNIA, LMT VIEW OF LT TESTICLE PER J CREW TECHNIQUE: Real-time focused scanning was performed of the inguinal region, with image documentation. COMPARISON: None. FINDINGS: Technically limited exam due to patient body habitus and pain. There is a suspected left inguinal hernia containing fat with abdominal wall defect measuring approximately 1.3 cm. Patient unable to Valsalva. Hernia does not reduce with compression. IMPRESSION: Technically limited exam demonstrates a probable nonreducible left inguinal hernia. Dictated by: Rafiq Ceron M.D. on 03/21/2022 at 17:10 Approved by: Rafiq Ceron M.D. on 03/21/2022 at 17:12
--- NOTE | 2022-03-21 16:34 | ED.MALEGU ---
HPI - Male Genitourinary <Kaylah Clark, [facility] - Last Filed: 03/21/22 18:18> General Chief complaint: Urogenital-Male Stated complaint: Left side groin pain Time Seen by Provider: 03/21/22 15:45 Source: patient Mode of arrival: Ambulatory History of Present Illness HPI Narrative: This is a 71-year-old male without significant medical history who presents to the emergency department complaining of left-sided inguinal hernia concerns, he states he had left inguinal hernia repair with mesh about 20 years ago. States that he was a little constipated today and when he had a bowel movement he felt pressure in his left inguinal region with radiation to his left testicle. Denies any urinary complaints including dysuria, urgency, hematuria, urinary retention or frequency. He denies any flank pain, fever, chills, abdominal pain, nausea or vomiting. He denies any other symptoms, states that he was doing a lot of lifting over the weekend and may have worsened this. Patient states that he was probably dehydrated yesterday too. He has been afebrile, without any testicle pain, rectal pain or other symptom at this time. Related Data Home Medications Medication Instructions Recorded Confirmed duloxetine 20 mg capsule,delayed 20 mg PO QPM 04/18/20 04/20/20 release ibuprofen 800 mg tablet 800 mg PO DAILY PRN Pain 04/18/20 04/18/20 Previous Rx's Medication Instructions Recorded acetaminophen 325 mg tablet 650 mg PO TID #40 tabs 04/21/20 aspirin 81 mg tablet,delayed 81 mg PO BID #40 tabs 04/21/20 release docusate sodium 100 mg capsule 100 mg PO BID #40 caps 04/21/20 (DOK) oxycodone 5 mg tablet 5 mg PO Q3HR PRN Pain, Moderate 04/21/20 (4-6) #1 tab doxycycline hyclate 100 mg tablet 100 mg PO BID #20 tabs 02/19/22 diclofenac sodium 1 % topical gel 2 g topical QID #100 grams 03/21/22 polyethylene glycol 3350 17 17 g PO BID PRN constipation #119 03/21/22 gram/dose oral powder (Miralax) grams Allergies Allergy/AdvReac Type Severity Reaction Status Date / Time oxacillin Allergy Severe Hives Verified 03/21/22 12:22 Penicillins Allergy Severe Hives Verified 03/21/22 12:22 Review of Systems <BAILEY Cochran - Last Filed: 03/21/22 18:18> Review of Systems Narrative: Review of systems is negative for acute abnormalities unless otherwise noted in HPI Patient History <BAILEY Cochran - Last Filed: 03/21/22 18:18> Medical History Adult acne Anger Bradycardia Decompression sickness (2013) Enlarged prostate Fracture, nasal Hearing loss Pneumonia (2016) Prostatitis Surgical History History of colonoscopy History of phacoemulsification of cataract of left eye with intraocular lens implantation Hx of eye surgery (1977) Hx of hernia repair (2002) Social History household members: spouse Smoking Status: Never smoker alcohol intake: current Smoking Status: Never smoker alcohol intake frequency: 0-2 drinks per day Substance Use Type: does not use Exam <BAILEY Cochran - Last Filed: 03/21/22 18:18> Narrative Exam Narrative: Reviewed vitals signs and nursing notes. General: cooperative, comfortable, in no acute distress, well groomed HEENT: symmetrical facial expressions, moist mucous membranes Cardiovascular: regular rate and rhythm, no peripheral edema, warm extremities Respiratory: normal effort, able to speak in complete sentences, without wheezing, stridor, or abnormal breath sounds. No retractions or tachypnea. GI: abdomen soft, nontender to palpation, nondistended, without masses, rebound tenderness or exquisite tenderness with exam. Left inguinal region does have soft protrusion which is easily reducible, no abnormalities of his scrotum, normal cremasteric reflex, without wound, edema, erythema, or masses MSK: moves all extremities, neurovascularly intact, no weakness, normal tone Skin: brisk capillary refill, without pallor or erythema Neuro: normal speech and cognition, A&O x3, ambulatory, clear speech Psych: mental status is grossly normal, congruent mood, normal affect, pleasant and cooperative Initial Vital Signs Initial Vital Signs: Vital Signs Pulse Rate 49 L 03/21/22 12:20 Respiratory Rate 15 03/21/22 12:20 Blood Pressure 154/83 H 03/21/22 12:20 Pulse Oximetry 97 03/21/22 12:20 Oxygen Delivery Method 03/21/22 12:20 <Ambreen Holman DO - Last Filed: 03/22/22 01:42> Initial Vital Signs Initial Vital Signs: Vital Signs Pulse Rate 49 L 03/21/22 12:20 Respiratory Rate 15 03/21/22 12:20 Blood Pressure 154/83 H 03/21/22 12:20 Pulse Oximetry 97 03/21/22 12:20 Oxygen Delivery Method 03/21/22 12:20 Course <ALEE CochranP - Last Filed: 03/21/22 18:18> Orders Ordered: ED Orders 03/21/22 17:38 Consult to General Surgery Stat Vital Signs Vital signs: Vital Signs - 8 hr 03/21/22 12:20 Pulse Rate 49 L Respiratory Rate 15 Blood Pressure 154/83 H Pulse Oximetry 97 Oxygen Delivery Method Room Air <Amberen Holman DO - Last Filed: 03/22/22 01:42> Orders Ordered: ED Orders 03/21/22 17:38 Consult to General Surgery Stat Vital Signs Vital signs: Vital Signs - 8 hr 03/21/22 12:20 Pulse Rate 49 L Respiratory Rate 15 Blood Pressure 154/83 H Pulse Oximetry 97 Oxygen Delivery Method Room Air MDM - Male Genitourinary <ALEE CochranP - Last Filed: 03/21/22 18:18> Lab Data Labs: Lab Results 03/21/22 Range/Units 15:40 Urine RBC None seen (0-5/HPF) Urine WBC 1-5/hpf (0-5/HPF) Urine Bacteria Occasional (0-1) (None) Ur Culture Indicated? Specimen cultured Urine Dip Bedside Urine Glucose Negative Bedside Urine Bilirubin - Negative Bedside Urine Ketone - Negative Urine Specific Orla 1.010 Bedside Urine Occult Blood - Negative Bedside Urine pH 7.0 Bedside Urine Protein - Negative Bedside Urine Urobilinogen - Negative Bedside Urine Nitrite - Negative Bedside Urine Leukocytes - Negative Esterase Imaging Data US - abdomen: Radiologist's Impression: PROCEDURE:? US ABDOMEN LIMITED ? INDICATIONS:? LEFT INGUINAL HERNIA, LMT VIEW OF LT TESTICLE PER Jacqui CREW ? TECHNIQUE:? Real-time focused scanning was performed of the inguinal region, with image documentation.? ? COMPARISON:? None. ? FINDINGS:? Technically limited exam due to patient body habitus and pain.? There is a suspected left inguinal hernia containing fat with abdominal wall defect measuring approximately 1.3 cm. ?Patient unable to Valsalva.? Hernia does not reduce with compression. ? IMPRESSION:? Technically limited exam demonstrates a probable nonreducible left inguinal hernia. ? ? Dictated by: Rafiq Ceron M.D. on 03/21/2022 at 17:10 ? ? Approved by: Rafiq Ceron M.D. on 03/21/2022 at 17:12 ? [facility] Narrative Medical decision making narrative: This is a pleasant 71-year-old male presents to the emergency department with concerns that his left inguinal hernia repair has failed or he has a new left inguinal hernia. Ultrasound of his left groin shows a probable nonreducible left inguinal hernia containing fat, does not reduce with compression, measures approximately 1.3 cm. This is consistent with my exam, it was palpable but very soft, did not feel like bowel, it was not quite reducible. Patient has prior inguinal hernia repair with mesh in this region, it is without erythema, he is without symptoms of illness, consultation was placed for Dr. Ndiaye at [facility], patient can call or they will call him for an appointment for follow-up. Patient is appropriate and amenable to discharge home. Vital signs are stable on repeat examination is unremarkable. Patient has been informed of results. Patient has been given strict return to ER precautions for any new or worsening symptoms. Patient understands to follow up closely with outpatient providers as instructed. Patient understands plan and agrees to discharge home. All questions and concerns answered at this time. <Ambreen Holman, DO - Last Filed: 03/22/22 01:42> Lab Data Labs: Lab Results 03/21/22 Range/Units 15:40 Urine RBC None seen (0-5/HPF) Urine WBC 1-5/hpf (0-5/HPF) Urine Bacteria Occasional (0-1) (None) Ur Culture Indicated? Specimen cultured Urine Dip Bedside Urine Glucose Negative Bedside Urine Bilirubin - Negative Bedside Urine Ketone - Negative Urine Specific Orla 1.010 Bedside Urine Occult Blood - Negative Bedside Urine pH 7.0 Bedside Urine Protein - Negative Bedside Urine Urobilinogen - Negative Bedside Urine Nitrite - Negative Bedside Urine Leukocytes - Negative Esterase Discharge Plan Departure Patient Disposition: Home Clinical Impression: Inguinal hernia Qualifiers: Obstruction and gangrene presence: with obstruction but without gangrene Laterality: unilateral Recurrence: recurrent Qualified Code(s): K40.31 - Unilateral inguinal hernia, with obstruction, without gangrene, recurrent Instructions: DI for Groin Hernia, Hernia Repair Activity Restrictions/Additional Instructions: *You have been diagnosed with a left inguinal hernia that has fat protruding through the opening without any signs of bowel incarceration or involvement. This is good news, I have placed a referral to [facility] with Dr. Ndiaye for hernia repair. They will call you or you may call them to set up your appointment. Please use MiraLax morning and night to help keep your stool soft, avoid heavy lifting, you may want to wear a belt low on your abdomen to help keep this in but I do not think it is reducible so it may not make any difference if you try. I am sorry for your pain, topical diclofenac gel might be the most painful or taking Tylenol ibuprofen as you tolerate it. Thank you for trusting us with your care and your patience, I hope that you feel better soon. *What to do: *Please continue to take your regular medications as directed. [ x] New medication prescriptions sent to your pharmacy: [DOD] [ ] New medication written as a paper prescription [ ] No new medications given *Please follow up with your primary care provider in 2-3 days, call for an appointment. Let them know you were seen in the Emergency Department and that we asked that you be seen for follow-up. We will electronically transmit a record of today's note if your PCP is in our system *If you do not have a primary care provider please contact [phone] to establish care with one of the [facility] primary care providers. *Return to Emergency Department if you should have any new, worsening, or concerning symptoms, such as [fever greater than 101F, chills, worsening pain, persistent vomiting or other bothersome symptoms]. Prescriptions: New polyethylene glycol 3350 [Miralax] 17 gram/dose powder 17 g PO BID PRN (Reason: constipation) Qty: 119 0RF diclofenac sodium 1 % gel 2 g topical QID Qty: 100 0RF Rx Instructions: Apply to area pain up to 4 times daily No Action doxycycline hyclate 100 mg tablet 100 mg PO BID Qty: 20 0RF ibuprofen 800 mg Tablet 800 mg PO DAILY PRN (Reason: Pain) duloxetine 20 mg Capsule,Delayed Release(Dr/Ec) 20 mg PO QPM Rx Instructions: Takes at 2000 acetaminophen 325 mg Tablet 650 mg PO TID Qty: 40 0RF aspirin 81 mg Tablet,Delayed Release (Dr/Ec) 81 mg PO BID Qty: 40 0RF docusate sodium [DOK] 100 mg Capsule 100 mg PO BID Qty: 40 0RF oxycodone 5 mg Tablet 5 mg PO Q3HR PRN (Reason: Pain, Moderate (4-6)) Qty: 1 0RF Referrals: Jameson Akins DO [Primary Care Provider] - Visit Report Forms: Patient Portal/API <Ambreen Holman DO - Last Filed: 03/22/22 01:42> Cosign ED Attending Chelaature Attestation: I was immediately available in the department for consultation. Documentation has been reviewed. I agree with assessment and plan.
[2022-03-21 17:14] LABS: Bacteria Urine Occasional (0-1); Culture Indicated Urine Specimen Cultured; RBC Urine None Seen (0-5/HPF); WBC Urine 1-5/HPF (0-5/HPF)
== END 2022-03-21 18:00 | disposition home or self-care (01) ==
PROVIDERS: Emergency Provider Nurse Practitioner Critical Care Medicine; PCP Student in an Organized Health Care Education/Training Program
DX: K40.31 Unilateral inguinal hernia, with obstruction, without gangrene, recurrent (principal)
CPT/HCPCS: 76705; 81003; 81015; 87086; 99283

== ENCOUNTER → 2022-05-15 09:57 | Outpatient (CLI) | payer MEDICARE, OTHER, SELFPAY ==
[2020-04-20 11:10] VITALS: BMI 31.4
[2022-05-15 12:14] LABS: COVID19 -Nasal RAPID Negative (Negative)
== END ==
PROVIDERS: PCP Student in an Organized Health Care Education/Training Program; Visit Provider Surgery
DX: Z01.812 Encounter for preprocedural laboratory examination (principal); Z20.822 Contact with and (suspected) exposure to COVID-19
CPT/HCPCS: 87635; C9803

== ENCOUNTER 2022-05-16 10:26 | Day surgery (SDC) | payer MEDICARE, OTHER, SELFPAY ==
[2020-04-20 11:10] VITALS: BMI 31.4
[2022-05-15 08:23] VITALS: BMI 31.9
[2022-05-15 14:37] VITALS: BMI 31.9
[2022-05-16] VITALS (10 sets, daily range): BP systolic 130–175; BP diastolic 42–109; PULSE 50–78; RESP 9–20; TEMP 36.1–36.7; O2SAT 92–97; BMI 31.9
[2022-05-16] MEDS: LACTATED RINGERS 1,000 ML 100 ML IV ×2 (11:19→12:56)
--- NOTE | 2022-05-16 11:29 | P.HP_ITS ---
History of Present Illness History of Present Illness Date Patient Seen: 05/16/22 Time Patient Seen: 11:30 Chief complaint: Hernia Repair Umbilical/Hernia Repair Umbilical w/ Narrative: 71-year-old male with a prior remote open left inguinal hernia with a left ingu inal recurrence an umbilical hernia. He is here for laparoscopic left inguinal hernia repair and umbilical hernia repair. No interval changes in health. Please refer the H and P from March 2022 for further detail. 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) Hx of eye surgery (1977) Hx of hernia repair (2002) Family & Social History Social History: household members spouse Prior Living Arrangements House Tobacco & Substance use: Smoking Status Never smoker alcohol intake current alcohol intake frequency 0-2 drinks per day Substance Use Type does not use Meds Home Medications and Allergies Home Medications Medication Instructions Recorded Confirmed Type fluoxetine 20 mg tablet 20 mg PO DAILY 05/16/22 05/16/22 History ibuprofen 200 mg capsule 400 mg PO Q6H PRN Pain, Mild 05/16/22 05/16/22 History Allergies Allergy/AdvReac Type Severity Reaction Status Date / Time oxacillin Allergy Severe Hives Verified 05/16/22 10:51 Penicillins Allergy Severe Hives Verified 05/16/22 10:51 Exam Vital Signs (past 8 hours): - 05/16/22 11:14 Temperature 97.0 F L Pulse Rate 50 L Respiratory Rate 16 Blood Pressure 150/88 H Pulse Oximetry 97 Oxygen Delivery Method Room Air Oxygen Delivery Method Room Air Narrative Exam Narrative: General adult male alert oriented no acute distress Abdomen umbilical and left inguinal hernia are marked with my initials. Assessment & Plan Assessment & Plan narrative: 71-year-old male here for recurrent laparoscopic left inguinal hernia repair and umbilical hernia repair. Overview of the operation was again discussed with the patient at the bedside. Operative risks including bleeding, infection, damage to surrounding structures, chronic pain and recurrence were discussed. His questions have been answered he is in agreement with this plan. Time Spent With Patient Critical Care time: I spent a total of [] minutes of critical care time on this patient's care today; this time is exclusive of procedural time.
[2022-05-16] MEDS: CLINDAMYCIN 900 MG/50 ML PIGGYBACK 50 MG IV (11:50)
--- NOTE | 2022-05-16 12:16 | SUR.OPER ---
Supine on padded OR bed, head on pillow, arms padded and tucked at sides, legs uncrossed, safety belt at thigh, tape over blanket over lower legs .
[2022-05-16] MEDS: BUPIVACAINE 0.25% (PF) VIAL 30 ML INJ (12:32)
[2022-05-16] MEDS: HYDROMORPHONE 2 MG INJ IV ×2 (14:07→14:23)
--- NOTE | 2022-05-16 14:27 | SUR.PHASEI ---
SBAR report at bedside to Adilia RN. Pt awake, alert, oriented. Medicated for pain.
--- NOTE | 2022-05-16 14:29 | P.OP_ITS ---
Operative Date/Time/Diagnoses Date of procedure: 05/16/22 Time of procedure: 14:29 Pre-op diagnosis: Recurrent left inguinal hernia, umbilical hernia Post-op diagnosis: same Procedure & Clinicians Procedure: Laparoscopic transabdominal preperitoneal repair of recurrent left inguinal hernia and open umbilical hernia repair Same procedure as scheduled: Yes Indications: Prior anterior left inguinal hernia repair with a recurrence and a symptomatic umbilical hernia Surgeon: Abdirashid Ndiaye Anesthesia Type: General Operative Notes Findings: Indirect defect, no direct floor defect 2 cm fascial opening Specimen(s): none sent Estimated Blood Loss (mL): 100 Procedure in detail: The patient was brought to the operating room and placed supine on the table. Bilateral sequential compression devices were applied. General anesthesia was induced and they were intubated with an endotracheal tube. A posey cath was placed in sterile fashion. They received 900g clindaymycin prior to skin incision. They were prepped and draped in sterile fashion. A time out was performed to ensure the correct patient, procedure and necessary equipment within the operating room. The skin was infiltrated with 0.25% bupivicaine. A curvilinear infraumbilical incision was made. The fascia through the hernia defect was entered. A 10mm balloon port was placed and pneumoperitoneum was established at 15mm Hg. Inspection of the abdomen demonstrated no evidence of injury upon entry. Two 5 mm ports were then placed under direct visualization i n the right and left lower quadrant lateral to the rectus muscle. A left indirect hernia was observed. Starting on the left side the peritoneum 4 cm superior to the deep inguinal ring between the medial umbilical ligament and the anterior superior iliac spine was incised. The medial preperitoneal dissection was carried out into the space of Retzius bluntly, the bladder was swept inferiorly, the pubis and Rodney's ligament were identified. Next attention was turned towards the lateral aspect of the peritoneal flap. The preperitoneal fat with the testicular vessels was carefully dissected off the inferior peritoneal flap. The cord was carefully inspected and skeltonized. There was a moderate size indirect hernia and a cord lipoma which were skeltonized off the cord preserving the testicular vessels and the vas deferns. The attachements to the direct hernia sac were divided and the direct defect was reduced. A large Bard 3D Max mesh was then placed into the abdomen and positioned such that the myopectineal orifice was completely covered with good overlap on all sides. The peritoneal flap was then repositioned back to its original position and a running V lock suture was used to close the peritoneum such that no bowel could herniate into the preperitoneal space. The area was examined for hemostasis. The umbilical hernia was identified and the hernia sac was dissected off the umbilical skin and circumferentially off of the fascia defect. The hernia sac was sharply opened and contained viable omentum. The omentum was reduced back into the abdomen. Using blunt dissection I carefully carefully freed the hernia sac from beneath the fascia defect in order to accomodate the mesh. The fascia defect was 2 cm in maximal diameter. A Bard Ventralex ST hernia patch 4 cm was inserted beneath the fascia defect and above the peritoneum in a sublay position. The mesh was anchored in multiple locations using Ethibond suture to the fascia and the fascial defect was closed over the mesh. The umbilical skin was tacked to the subcutaneous tissues and then the remainder of the subcutaneous tissues were reapproximated using 3 0 Vicry,l skin closed with 4 0 Monocryl followed by the application of Dermabond. There was some bleeding from the right-sided trocar port. I reinserted the trocar through the left side and inspected the posterior wall the abdomen and there was no evidence of bleeding into the abdomen. It appeared to be coming from within the subcutaneous tissue with the rectus muscle. Interrupted nylon suture was placed to close the right port site. Sponge instrument count at the end of the operation was correct. Patient tolerated procedure well was extubated and transferred to postoperative care unit in stable condition. Complications: none Post-operative Condition: stable Disposition: same day surgery
[2022-05-16] MEDS: ACETAMINOPHEN IV 1,000 MG/100 ML VIAL 400 MG IV (14:31)
[2022-05-16] MEDS: OXYCODONE IR 5 MG TABLET PO (14:44)
== END 2022-05-16 15:52 | disposition home or self-care (01) ==
PROVIDERS: PCP Student in an Organized Health Care Education/Training Program; Referring Provider Surgery; Visit Provider Surgery
PROC: 0YQ64ZZ Repair Left Inguinal Region, Percutaneous Endoscopic Approach (ICD-10-PCS; CPT 49651; principal; 2022-05-16 12:15)
PROC: 0WQF4ZZ Repair Abdominal Wall, Percutaneous Endoscopic Approach (ICD-10-PCS; CPT 49651; 2022-05-16 12:15)
DX: K40.91 Unilateral inguinal hernia, without obstruction or gangrene, recurrent (principal); K42.9 Umbilical hernia without obstruction or gangrene
CPT/HCPCS: 49651; 49585; 82962; J0131; J0330; J1100; J1170; J2405; J2704; J3010

== ENCOUNTER → 2022-08-24 14:47 | Outpatient (CLI) | payer MEDICARE, OTHER, SELFPAY ==
[2020-04-20 11:10] VITALS: BMI 31.4
--- NOTE | 2022-08-29 08:20 | PM.PFT.1 ---
Pulmonary Function Test Referral & Results Date Patient Seen: 08/24/22 Requesting provider: Jameson Akins Results: The spirometry demonstrates an FVC of 2.66 L which is 71% of predicted. The FEV1 was measured at 2.18 L which is 81% of predicted. The FEV1/FVC ratio was 82 which is 112% of predicted. Following the administration of bronchodilator there was no appreciable change. Lung volumes show an SVC of 2.95 L which is 74% of predicted. The diffusing capacity was measured at 22.40 which is 83% of predicted. The maximum voluntary ventilation was normal Interpretation: This study demonstrates possibly very mild obstructive lung disease based on reduction FEV1 although FEV1/FVC ratio is normal and there is no evidence of benefit following bronchodilator There is a mild reduction in lung volumes suggesting the presence of mild restrictive lung disease which probably explains the abnormality in the FEV1 above Diffusing capacity is probably normal although at 83% of predicted may indicate very mild disease at the capillary alveolar level Clinical correlation suggested
== END ==
PROVIDERS: PCP Student in an Organized Health Care Education/Training Program; Referring Provider Student in an Organized Health Care Education/Training Program; Visit Provider Student in an Organized Health Care Education/Training Program
DX: R05.3 Chronic cough (principal); F17.210 Nicotine dependence, cigarettes, uncomplicated; J98.8 Other specified respiratory disorders
CPT/HCPCS: 94060; 94726; 94729